=== PATIENT | male | born 2000 | race American Indian/Alaskan Native ===

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

== ENCOUNTER 2019-04-10 21:12 | Emergency (ER) | payer SELFPAY ==
[2019-04-10] MEDS ORDERED: VISTARIL PO ONE (21:48)
--- NOTE | 2019-04-10 21:48 | Event Note ---
ED Screening Note Date of service: 04/10/19 Time: 21:46 ED Screening Note: Pt complains of diffuse itchy, painful rash x 1 month. States tactile fever. Denies other chronic medical conditions This initial assessment/diagnostic orders/clinical plan/treatment(s) is/are subject to change based on patients health status, clinical progression and re- assessment by fellow clinical providers in the ED. Further treatment and workup at subsequent clinical providers discretion. Patient/guardian urged not to elope from the ED as their condition may be serious if not clinically assessed and managed. Initial orders include:
[2019-04-10 23:43] LABS: Basophils # (Auto) 0.1 K/mm3 (0.0-0.1); Eosinophils # (Auto) 0.4 K/mm3 (0.0-0.4); Eosinophils % (Auto) 5.3 % (0.0-4.3); Hematocrit 43.9 % (35.5-45.6); Hemoglobin 14.7 gm/dl (11.8-15.2); Lymphocytes # (Auto) 2.5 K/mm3 (1.2-5.4); Lymphocytes % (Auto) 29.2 % (13.4-35.0); Mean Corpuscular HGB Conc 34 % (32-34); Mean Corpuscular Volume 91 fl (84-94); Monocytes # (Auto) 0.8 K/mm3 (0.0-0.8); Monocytes % (Auto) 9.5 % (0.0-7.3); Red Blood Count 4.85 M/mm3 (3.65-5.03); Red Cell Distribution Width 13.5 % (13.2-15.2)
[2019-04-11 00:02] LABS: BUN/Creatinine Ratio 10; Blood Urea Nitrogen 9 mg/dL (9-20); Calcium 8.7 mg/dL (8.4-10.2); Hemolysis Index 18
[2019-04-11] MEDS ORDERED: DELTASONE PO ONE (01:19)
[2019-04-11] MEDS ORDERED: PEPCID PO ONE (01:19)
[2019-04-11] MEDS ORDERED: BENADRYL PO ONE (01:19)
[2019-04-11] MEDS ORDERED: VISTARIL ONE (01:22)
--- NOTE | 2019-04-11 01:47 | Emergency Department Report ---
ED General Adult HPI - General Chief complaint: Skin Rash Stated complaint: BODY RASH,COLD AND FEVER Time Seen by Provider: 04/11/19 01:02 Source: patient Mode of arrival: Ambulatory Limitations: No Limitations - History of Present Illness Initial comments: This is a 19 y/o aam with hx of asthma and eczema with impetigo who presents for complains of diffuse itchy, painful rash x 1 month. This has been a recurring problem for since childhood. pt states he itches then scratches and cycle revolves with itch scratch cycle. states he scratched his chest up now with multiple abrassions. there is no sob no wheezing no stridor. Onset/Timin -: month(s), unknown (chronic problem ) Location: chest, back, upper extremity, lower extremity Severity scale (0 -10): 4 Quality: burning, other (itching ) Consistency: constant Improves with: none Worsens with: none Associated Symptoms: rash. denies: chest pain, cough, diaphoresis, fever/chills, headaches, malaise, nausea/vomiting, shortness of breath, syncope, weakness Treatments Prior to Arrival: none - Related Data Home Medications Medication Instructions Recorded Confirmed Last Taken Lisinopril [Zestril] 10 mg PO QDAY 10/12/14 10/12/14 10/11/14 hydroCHLOROthiazide [Hctz] 25 mg PO QDAY 10/12/14 10/12/14 10/11/14 Previous Rx's Medication Instructions Recorded Last Taken Type Hyoscyamine Subl [Levsin Sl] 0.125 mg SL Q4HR PRN #15 tablet 10/12/14 Unknown Rx Ondansetron (Nf) [Zofran] 8 mg PO Q8HR PRN #15 tablet 10/12/14 Unknown Rx Acetaminophen/Codeine [Tylenol #3] 1 tab PO Q6H PRN #15 tab 04/02/15 Unknown Rx Famotidine [Pepcid] 20 mg PO BID #30 tablet 04/11/19 Unknown Rx Mupirocin [Bactroban 2% OINT] 1 applic TP TID #1 tube 04/11/19 Unknown Rx cephALEXin [Keflex] 500 mg PO Q8H #30 cap 04/11/19 Unknown Rx diphenhydrAMINE [Benadryl CAP] 25 mg PO Q6HR PRN #30 capsule 04/11/19 Unknown Rx predniSONE [Deltasone] 40 mg PO QDAY 5 Days #10 tab 04/11/19 Unknown Rx Allergies Allergy/AdvReac Type Severity Reaction Status Date / Time No Known Allergies Allergy Verified 10/12/14 01:05 ED Review of Systems ROS: Stated complaint: BODY RASH,COLD AND FEVER Other details as noted in HPI Constitutional: denies: chills, fever Eyes: denies: eye pain, eye discharge, vision change ENT: denies: ear pain, throat pain Respiratory: denies: cough, shortness of breath, wheezing Cardiovascular: denies: chest pain, palpitations Endocrine: no symptoms reported Gastrointestinal: denies: abdominal pain, nausea, diarrhea Genitourinary: denies: urgency, dysuria Musculoskeletal: denies: back pain, joint swelling, arthralgia Skin: lesions (rash dry raised, multiple abrasions ). denies: rash Neurological: denies: headache, weakness, paresthesias Psychiatric: denies: anxiety, depression Hematological/Lymphatic: denies: easy bleeding, easy bruising ED Past Medical Hx - Past Medical History Hx Hypertension: Yes Additional medical history: High Cholesterol - Surgical History Past Surgical History?: No - Social History Smoking Status: Current Every Day Smoker Substance Use Type: Alcohol, Marijuana - Medications Home Medications: Home Medications Medication Instructions Recorded Confirmed Last Taken Type Hyoscyamine Subl [Levsin Sl] 0.125 mg SL Q4HR PRN #15 tablet 10/12/14 Unknown Rx Lisinopril [Zestril] 10 mg PO QDAY 10/12/14 10/12/14 10/11/14 History Ondansetron (Nf) [Zofran] 8 mg PO Q8HR PRN #15 tablet 10/12/14 Unknown Rx hydroCHLOROthiazide [Hctz] 25 mg PO QDAY 10/12/14 10/12/14 10/11/14 History Acetaminophen/Codeine [Tylenol #3] 1 tab PO Q6H PRN #15 tab 04/02/15 Unknown Rx Famotidine [Pepcid] 20 mg PO BID #30 tablet 04/11/19 Unknown Rx Mupirocin [Bactroban 2% OINT] 1 applic TP TID #1 tube 04/11/19 Unknown Rx cephALEXin [Keflex] 500 mg PO Q8H #30 cap 04/11/19 Unknown Rx diphenhydrAMINE [Benadryl CAP] 25 mg PO Q6HR PRN #30 capsule 04/11/19 Unknown Rx predniSONE [Deltasone] 40 mg PO QDAY 5 Days #10 tab 04/11/19 Unknown Rx ED Physical Exam - General Limitations: No Limitations General appearance: alert, in no apparent distress - Head Head exam: Present: atraumatic, normocephalic - Eye Eye exam: Present: normal appearance, PERRL, EOMI Pupils: Present: normal accommodation - ENT ENT exam: Present: normal orophraynx, mucous membranes moist, TM's normal bilaterally, normal external ear exam - Neck Neck exam: Present: normal inspection, full ROM. Absent: tenderness, meningismus, lymphadenopathy, thyromegaly - Respiratory Respiratory exam: Present: normal lung sounds bilaterally. Absent: respiratory distress, wheezes, stridor, chest wall tenderness - Cardiovascular Cardiovascular Exam: Present: regular rate, normal rhythm, normal heart sounds. Absent: systolic murmur, diastolic murmur, rubs, gallop - GI/Abdominal GI/Abdominal exam: Present: soft, normal bowel sounds. Absent: distended, tenderness, bruit, hernia - Rectal Rectal exam: Present: deferred - Extremities Exam Extremities exam: Present: normal inspection, full ROM, normal capillary refill. Absent: tenderness, pedal edema, joint swelling, calf tenderness - Back Exam Back exam: Present: normal inspection, full ROM, rash noted. Absent: tenderness, CVA tenderness (R), CVA tenderness (L), muscle spasm, paraspinal tenderness - Neurological Exam Neurological exam: Present: alert, oriented X3, CN II-XII intact, normal gait, reflexes normal. Absent: motor sensory deficit - Psychiatric Psychiatric exam: Present: normal affect, normal mood - Skin Skin exam: Present: warm, dry, intact, normal color, rash, erythema, urticaria, abrasion. Absent: cyanosis, diaphoretic, vesicles, petechiae, pallor, ecchymosis ED Course Vital Signs 04/10/19 21:22 Temperature 98.4 F Pulse Rate 62 Respiratory 18 Rate Blood Pressure 142/72 O2 Sat by Pulse 100 Oximetry ED Medical Decision Making - Lab Data Result diagrams: 04/10/19 23:20 04/10/19 23:20 Labs 04/10/19 04/10/19 23:20 23:20 WBC 8.5 RBC 4.85 Hgb 14.7 Hct 43.9 MCV 91 MCH 30 MCHC 34 RDW 13.5 Lymph % (Auto) 29.2 [place] % (Auto) 9.5 H Eos % (Auto) 5.3 H Baso % (Auto) 1.0 Lymph # 2.5 [place] # 0.8 Eos # 0.4 Baso # 0.1 Seg Neutrophils % 55.0 Seg Neutrophils # 4.7 Sodium 142 Potassium 3.9 Chloride 102.4 Carbon Dioxide 28 Anion Gap 16 BUN 9 Creatinine 0.9 Estimated GFR > 60 BUN/Creatinine Ratio 10 Glucose 63 L Calcium 8.7 - Medical Decision Making This is a eczema with impetigo, abrasions are from scratching, plan: prednisone, Benadryl, mupiracin oint, keflex, pepcid, follow up with Dermatolog y in 2 days , pt verbalized agreement and understanding of discharge plan. Critical care attestation.: If time is entered above; I have spent that time in minutes in the direct care of this critically ill patient, excluding procedure time. ED Disposition Clinical Impression: Impetigo Eczema Qualifiers: Eczema type: unspecified Qualified Code(s): L30.9 - Dermatitis, unspecified Disposition: DC-01 TO HOME OR SELFCARE Is pt being admited?: No Does the pt Need Aspirin: No Condition: Stable Instructions: Eczema (ED), Contact Dermatitis (ED), Impetigo (ED), Cellulitis (ED) Prescriptions: Mupirocin [Bactroban 2% OINT] 1 applic TP TID #1 tube diphenhydrAMINE [Benadryl CAP] 25 mg PO Q6HR PRN #30 capsule PRN Reason: Itching predniSONE [Deltasone] 40 mg PO QDAY 5 Days #10 tab cephALEXin [Keflex] 500 mg PO Q8H #30 cap Famotidine [Pepcid] 20 mg PO BID #30 tablet Referrals: SOL SILVERMAN MD [Staff Physician] - 3-5 Days Forms: Work/School Release Form(ED) Time of Disposition: 01:57
[2019-04-11 03:38] LABS: Platelet Count 203 K/mm3 (140-440)
[2019-04-11 03:48] VITALS: BP 124/78
== END 2019-04-11 02:15 | disposition home or self-care (01) ==
LOC: ED 21:12
DX: L30.9 Dermatitis, unspecified (principal)
CPT/HCPCS: 36415; 80048; 85025; 99283; J7512; Q0177